=== PATIENT | female | born 1995 | race Hispanic/Latino ===

== ENCOUNTER 2017-01-18 04:03 | Emergency (ER) | payer OTHER ==
[~2017-01-18] VITALS: Ht 154.9 cm; Wt 75.0 kg
[~2017-01-18 04:03] MED LIST: DSS100 PO; IBUP-1149 PO; PNV1TABL57 PO
[2017-01-18 04:04] VITALS: BP 112/81; PULSE 80; RESP 16; O2SAT 100
--- NOTE | 2017-01-18 04:47 | ED.REPORT ---
HPI- Female Date of Service Jan 18, 2017 ED Provider: Hector Gomez MD Pt is a healthy 21 year old female who presents to the ED with complaints of urine retention for the past 4 hours. . She reports that she was urinating when her urine stopped mid stream and she was left with a sense of incomplete empyting. She reports that she has not been able to urinate since then. She denies any dysuria, increased urinary urgency or frequency, flank pain, fever, nausea or chills. She has no other complaints. Nursing Notes Stated Complaint: URINE RETENTION Chief Complaint: Female Abdominal Pain Nursing Notes Reviewed: Yes Allergies: Coded Allergies: Penicillins (Verified Allergy, Unknown, 01/18/17) Uncoded Allergies: PENICILLIN (Allergy, Unknown, 01/18/17) Scheduled Docusate Sod-Expunged Drug, Do Not Renew! (Docusate Sod-Expunged Drug, Do Not Renew!) 100 Mg Capsule 100 MG PO BID IBUPROFEN-Expunged Drug, Do Not Renew! (IBUPROFEN-Expunged Drug, Do Not Renew!) 600 Mg Tablet 600 MG PO QID PNV CMB#95/FERROUS FUMARATE/FA-Expunged Drug, (-Expunged Drug, Do Not Renew!) 1 Each Tablet 1 EACH PO DAILY General Time Seen by MD: 04:43 Chief Complaint Unable to urinate Hx Obtained From: Patient Arrived By: Walk-in Sudden in Onset?: Yes Onset Occurred: Just prior to arrival Symptom Duration: Since onset Location: : LLQ Quality: Painful Severity: Current: Mild Severity: Maximum: Mild : 1 Para: 1 Similar Sx Previous: Yes Past Medical History Past Medical History Healthy Review of Systems Constitutional: Denies: Chills, Fever, Malaise, Weakness - generalized GI: Denies: Abdominal pain, Constipation, Nausea, Vomiting Female: Reports: Urination decreased, Denies: Dysuria, Flank pain, Urinary frequency, Urinary urgency Musculoskeletal: Denies: Back pain, Extremity pain, Neck pain Skin: Denies Diaphoresis Complete sys rev & neg: except as marked. Physical Exam Initial Vital Signs Vital Signs (First) Date Time Temp Pulse Resp B/P Pulse Ox O2 Delivery O2 Flow Rate FiO2 01/18/17 04:04 36.2 80 16 112/81 100 Room Air Initial VS: Reviewed, Vital signs normal General/Constitutional: Well-developed, Well-nourished Head / Eyes: Atraumatic, Normocephalic, PERRL ENT: Mucous membranes moist, Conjunctiva normal, No scleral icterus Neck: Supple, Non-tender, Full range of motion Respiratory: Breath sounds normal, Clear to auscultation, No respiratory distress Cardiovascular: Regular rate & rhythm, Heart sounds normal, Intact distal pulses Skin: Warm, Dry, No cyanosis Neurologic: Alert, Oriented, Nonfocal Psychiatric: Mood/affect normal, Behavior normal, Normal thought content Female Genitourinary: Exam deferred Abdomen: Atraumatic, Soft Tenderness/Guarding/Rebound: Positive: Tender LLQ... (Mild), Tender suprapubic Interpretation & Diagnostics Lab Results Interpretation Test 01/18/17 05:15 Urine Color Yellow (YELLOW) Urine Appearance Cloudy (CLEAR,HAZY) Urine pH 6.0 (5.0-8.0) Urine Specific Agenda 1.030 (1.003-1.035) Urine Protein Tracemg/dL (NEG,TRACE) Urine Glucose (UA) Negativemg/dL (NEGATIVE) Urine Ketones Negativemg/dL (NEGATIVE) Urine Occult Blood Large (NEGATIVE) Urine Nitrite Negative (NEGATIVE) Urine Bilirubin Negative (NEGATIVE) Urine Urobilinogen Normalmg/dL (NORMAL) Urine Leukocyte Esterase Trace (NEGATIVE) Urine RBC 11-50/hpf (0-2) Urine WBC >50/hpf (0-5) Urine Epithelial Cells Moderate/hpf (NONE-MOD) Urine Crystals None seen (NONE SEEN) Urine Bacteria Moderate/hpf (NONE-FEW) Urine Hyaline Casts None/lpf (NONE) Urine Granular Casts None seen (NONE SEEN) Urine Waxy Casts None seen (NONE SEEN) Urine Red Blood Cell Casts None seen (NONE SEEN) Urine White Blood Cell Casts None seen (NONE SEEN) Urine Mucus None seen (None Seen) Urine Trichomonas None seen (NONE SEEN) Urine Yeast None (NONE SEEN) Urinalysis Comment None Urine Culture Reflexed Indicated Lab Results Interpretation: Elevated urine white blood count, culture pending Re-Eval/Medical Decision Med Decision/Clinical Course 21-year-old female with irritative bladder symptoms. She does have evidence of urinary tract infection. Bladder scan shows only 76 mL. Given nitrofurantoin and phenazopyridine. Follow-up with her primary doctor in 2-3 days if symptoms persist. Source of Hx: Old records Re-Evaluation/Progress : Time of Eval: 05:52 Re-Evaluation/Progress Note: Pt is rechecked and informed of her diagnosis and the plan to discharge her at this time. She understands and agrees, all questions are addressed. Counseled Regarding: Diagnosis, Lab results, When/why to return to ED Discharge & Departure Impression: Primary Impression: UTI (urinary tract infection) Urinary tract infection type: site unspecified Hematuria presence: without hematuria Qualified Code: N39.0 - Urinary tract infection, site not specified Disposition: Home Discharge Condition All VS Reviewed: Yes Condition: Stable Patient Instructions: Urinary Tract Infection in Women (ED) Additional Instructions: Phenazopyridine (Azo, Uristat) 2 pills 3 times a day as needed for bladder symptoms, to be purchased [id number]. Nitrofurantoin 100 mg by mouth twice a day, prepack dispensed. Drink plenty of fluids and cranberry juice. Follow-up with Dr. Jose in 2-3 days if symptoms persist. Urine recheck once the antibiotic is done. Referrals: Josie Linton MD (PCP) [place] Attestation Portions of this note were transcribed by Maria Luisa Hanna. I, Dr. Gomez personally performed the history, physical exam and medical decision-making; I reviewed and confirmed the accuracy of the information in the transcribed note. Signed by: Vimal Mora, 01/17/2017 0545 copies to: Josie Linton MD, Howard L MD Jan 18, 2017 04:47 IRISH HANNA Jan 18, 2017 05:00
[2017-01-18 05:41] LABS: APPEARANCE,URINE CLOUDY (CLEAR,HAZY); COLOR,URINE YELLOW (YELLOW); OCCULT BLOOD,URINE LARGE (NEGATIVE); UROBILINOGEN,URINE NORMAL (NORMAL)
[2017-01-18] MEDS ORDERED: Phenazopyridine 97.5 mg Tablet PO ONE (06:40)
[2017-01-18] MEDS ORDERED: _Nitrofurantoin Macrocrystal 100 mg Capsule PO SCH (08:30)
== END 2017-01-18 06:56 | disposition home or self-care (01) ==
LOC: SED 04:03
DX: N39.0 Urinary tract infection, site not specified (principal); Z88.0 Allergy status to penicillin